=== PATIENT | female | born 1945 | race African-American/Black ===

== ENCOUNTER 2023-12-31 15:27 | Inpatient (IN) | payer OTHER, MEDICARE ==
[2023-12-31] MEDS: ACETAMINOPHEN 1000 MG/100 ML BAG IVPB ONE (16:37)
[2023-12-31] MEDS: SODIUM CHLORIDE 0.9% 500 ML INFUS.BAG IV ONE ×2 (16:37→18:57)
[2023-12-31 16:40] LABS: VENOUS BASE EXCESS 3.4 mmol/L (-2-2); VENOUS O2 SATURATION 30.4 % (70-80); VENOUS PCO2 45.5 mmHg (38-52); VENOUS PH 7.417 (7.310-7.410)
[2023-12-31 16:57] LABS: HEMATOCRIT 43.7 % (32.4-45.2); HEMOGLOBIN 14.3 GM/dL (10.7-15.3); MCH 26.9 pg (25.7-33.7); MCHC 32.7 g/dl (32.0-36.0); MEAN CELL VOLUME 82.4 fl (80-96); MEAN PLT VOLUME 9.3 fl (7.5-11.1); PLATELET COUNT 275 10^3/uL (134-434); RDW 14.5 % (11.6-15.6); WHITE BLOOD COUNT 23.1 K/mm3 (4.0-10.0)
[2023-12-31 16:59] LABS: INR 1.17 (0.83-1.09); PROTHROMBIN TIME (PATIENT) 13.2 SEC (9.7-13.0)
[2023-12-31 17:02] LABS: ACTIVATED PTT 31.5 SECONDS (25.2-36.5)
[2023-12-31 17:10] LABS: POTASSIUM 3.3 mmol/L (3.5-5.1)
[2023-12-31 17:11] LABS: CALCIUM 9.1 mg/dL (8.5-10.1)
[2023-12-31 17:12] LABS: ALBUMIN 2.9 g/dl (3.4-5.0); BLOOD UREA NITROGEN 45.6 mg/dL (7-18)
[2023-12-31 17:15] LABS: CREATININE 2.1 mg/dL (0.55-1.3)
[2023-12-31 17:17] LABS: BILIRUBIN,TOTAL 1.3 mg/dL (0.2-1); TOT PROT 7.8 g/dl (6.4-8.2)
[2023-12-31] MEDS: AZITHROMYCIN IVPB 500 MG in DEXTROSE 5%-WATER - 250 ML IVPB ONE (17:57)
[2023-12-31] MEDS: CEFTRIAXONE 1,000 MG in DEXTROSE 5%-WATER - 50 ML IVPB ONE (17:57)
[2023-12-31] MEDS: VANCOMYCIN/WATER 1250 MG 1,250 MG/250 ML BAG IVPB ONE (17:58)
[2023-12-31] MEDS: PIPERACILLIN/TAZOB 4.5 GM 4.5 GM in DEXTROSE 5%-WATER 100 ML IVPB ONE (17:58)
[2023-12-31] MEDS ORDERED: CEFTRIAXONE 1 GM/50 ML BAG ONE (17:59)
[2023-12-31] MEDS ORDERED: AZITHROMYCIN IVPB 500 MG/250 ML BAG IVPB ONE (18:00)
[2023-12-31] MEDS ORDERED: POTASSIUM CHLORIDE ORAL LIQUID 20 MEQ/15 ML ONE (18:07)
[2023-12-31] MEDS: POTASSIUM CHLORIDE ORAL LIQUID 20 MEQ/15 ML PO ONE (18:09)
[2023-12-31 18:26] LABS: EPI CELLS 31 /uL (0-25.1); HYALINE CASTS 14 /uL (0-3.1); PH,URINE 5.5 (5.0-8.0); URINE APPEARANCE CLOUDY; URINE BILIRUBIN 2+ (NEGATIVE); URINE COLOR DK YELLOW; URINE GLUCOSE (UA) TRACE (NEGATIVE); URINE KETONE TRACE (NEGATIVE); URINE LEUK ESTERASE TRACE (NEGATIVE); URINE NITRITE NEGATIVE (NEGATIVE); URINE PROTEIN 3+ (NEGATIVE); URINE WBC 57 /uL (0-25.8)
[2023-12-31] MEDS: DEXAMETHASONE SOD PHOSPHATE 10 MG/1 ML VIAL IVPUSH ONE (18:26)
[2023-12-31] MEDS ORDERED: DEXAMETHASONE SOD PHOSPHATE 4 MG/1 ML VIAL ONE (18:26)
[2023-12-31 18:40] LABS: ANISOCYTOSIS 1+; MACROCYTOSIS 0; ROULEAU 2+
[2023-12-31 19:24] LABS: URINE BACTERIA 2.8 /uL (0-1359); URINE RBC 32.9 /uL (0-23.9)
[2023-12-31 19:24] LABS: LACTIC ACID 2.5 mmol/L (0.4-2.0)
[2023-12-31] MEDS: REMDESIVIR 200 MG in SODIUM CHLORIDE 250 ML IVPB ONE (19:27)
[2023-12-31] MEDS ORDERED: ALBUTEROL SO4 HFA INHALER IH PRN (22:36)
[2024-01-01 00:37] VITALS: BMI 27.3
[2024-01-01 03:21] LABS: LACTIC ACID 2.2 mmol/L (0.4-2.0)
[2024-01-01] MEDS: ACETAMINOPHEN 1000 MG/100 ML BAG IVPB PRN (06:12)
[2024-01-01] MEDS: HEPARIN NA (PORCINE) 5,000 UNITS/ML 1ML VIAL SQ SCH (06:13)
[2024-01-01 07:38] LABS: HEMATOCRIT 38.9 % (32.4-45.2); HEMOGLOBIN 12.9 GM/dL (10.7-15.3); MCH 26.8 pg (25.7-33.7); MCHC 33.1 g/dl (32.0-36.0); PLATELET COUNT 247 10^3/uL (134-434); RBC 4.81 M/mm3 (3.60-5.2); RDW 14.9 % (11.6-15.6); WHITE BLOOD COUNT 15.9 K/mm3 (4.0-10.0)
[2024-01-01 07:53] LABS: POTASSIUM 3.3 mmol/L (3.5-5.1)
[2024-01-01 07:59] LABS: BLOOD UREA NITROGEN 46.2 mg/dL (7-18); CALCIUM 7.9 mg/dL (8.5-10.1); MAGNESIUM 2.8 mg/dL (1.8-2.4)
[2024-01-01 08:02] LABS: ALBUMIN 2.1 g/dl (3.4-5.0); CREATININE 1.5 mg/dL (0.55-1.3); PHOSPHOROUS 1.6 mg/dL (2.5-4.9)
[2024-01-01 08:05] LABS: BILIRUBIN,DIRECT 0.5 mg/dL (0.0-0.2)
[2024-01-01 08:07] LABS: BILIRUBIN,TOTAL 0.8 mg/dL (0.2-1)
[2024-01-01 08:29] LABS: LACTIC ACID 2.3 mmol/L (0.4-2.0)
[2024-01-01] MEDS: ACETAMINOPHEN 650 MG SUPP.RECT RC ONE (09:38)
[2024-01-01] MEDS ORDERED: AZITHROMYCIN IVPB 250 MG in DEXTROSE 5%-WATER - 250 ML IVPB SCH (10:00)
[2024-01-01] MEDS: REMDESIVIR 100 MG in SODIUM CHLORIDE 250 ML IVPB SCH (10:17)
[2024-01-01] MEDS: AZITHROMYCIN IVPB 500 MG/250 ML BAG IVPB SCH (10:17)
[2024-01-01 10:45] LABS: LACTIC ACID 3.6 mmol/L (0.4-2.0)
[2024-01-01] MEDS: CEFTRIAXONE 1 G/50 ML PREMIX 50 ML IVPB SCH (11:16)
[2024-01-01] MEDS: LACTATED RINGERS SOLUTION 1,000 ML/1,000 ML INFUS.BAG IV SCH (11:23)
[2024-01-01] MEDS: POTASSIUM CHLORIDE ORAL LIQUID 20 MEQ/15 ML PO ONE (11:59)
[2024-01-01] MEDS: NAPH,MB-DB/K PH,MBDB POWDER PACKET PO ONE (12:00)
[2024-01-01 12:38] LABS: HIV INTERPRETATION NEGATIVE (NEGATIVE)
[2024-01-01] MEDS: methylPREDNISolone NA SUCC 40 MG/1 ML VIAL IVPUSH SCH (13:42)
[2024-01-02 08:48] LABS: HEMATOCRIT 39.3 % (32.4-45.2); HEMOGLOBIN 12.5 GM/dL (10.7-15.3); MCH 26.3 pg (25.7-33.7); MCHC 31.8 g/dl (32.0-36.0); MEAN CELL VOLUME 82.9 fl (80-96); MEAN PLT VOLUME 9.7 fl (7.5-11.1); PLATELET COUNT 259 10^3/uL (134-434); RBC 4.75 M/mm3 (3.60-5.2); RDW 15.1 % (11.6-15.6); WHITE BLOOD COUNT 11.7 K/mm3 (4.0-10.0)
[2024-01-02 09:07] LABS: POTASSIUM 3.8 mmol/L (3.5-5.1)
[2024-01-02 09:11] LABS: ALBUMIN 2.1 g/dl (3.4-5.0); BLOOD UREA NITROGEN 42.6 mg/dL (7-18); CALCIUM 8.3 mg/dL (8.5-10.1)
[2024-01-02 09:12] LABS: MAGNESIUM 3.1 mg/dL (1.8-2.4)
[2024-01-02 09:14] LABS: CREATININE 1.3 mg/dL (0.55-1.3)
[2024-01-02 09:16] LABS: BILIRUBIN,TOTAL 0.8 mg/dL (0.2-1); TOT PROT 6.1 g/dl (6.4-8.2)
[2024-01-02] MEDS: NAPH,MB-DB/K PH,MBDB POWDER PACKET PO ONE (14:29)
[2024-01-02] MEDS: LACTATED RINGERS SOLUTION 1,000 ML/1,000 ML INFUS.BAG IV SCH (21:34)
[2024-01-03 07:48] LABS: HEMATOCRIT 36.9 % (32.4-45.2); HEMOGLOBIN 12.1 GM/dL (10.7-15.3); MCH 26.9 pg (25.7-33.7); MCHC 32.9 g/dl (32.0-36.0); MEAN CELL VOLUME 81.7 fl (80-96); MEAN PLT VOLUME 9.8 fl (7.5-11.1); PLATELET COUNT 235 10^3/uL (134-434); RBC 4.52 M/mm3 (3.60-5.2); RDW 15.2 % (11.6-15.6); WHITE BLOOD COUNT 10.4 K/mm3 (4.0-10.0)
[2024-01-03 08:14] LABS: POTASSIUM 4.2 mmol/L (3.5-5.1)
[2024-01-03 08:24] LABS: ALBUMIN 1.8 g/dl (3.4-5.0); BLOOD UREA NITROGEN 31.4 mg/dL (7-18); CALCIUM 8.3 mg/dL (8.5-10.1); CREATININE 0.9 mg/dL (0.55-1.3)
[2024-01-03 08:26] LABS: TOT PROT 5.1 g/dl (6.4-8.2)
[2024-01-03 08:33] LABS: BILIRUBIN,TOTAL 0.6 mg/dL (0.2-1)
[2024-01-03 10:18] LABS: PHOSPHOROUS 2.9 mg/dL (2.5-4.9)
[2024-01-04 08:58] LABS: HEMATOCRIT 37.8 % (32.4-45.2); HEMOGLOBIN 12.3 GM/dL (10.7-15.3); MCH 26.7 pg (25.7-33.7); MCHC 32.5 g/dl (32.0-36.0); MEAN CELL VOLUME 82.2 fl (80-96); MEAN PLT VOLUME 9.9 fl (7.5-11.1); PLATELET COUNT 299 10^3/uL (134-434); WHITE BLOOD COUNT 14.1 K/mm3 (4.0-10.0)
[2024-01-04 09:25] LABS: POTASSIUM 4.1 mmol/L (3.5-5.1)
[2024-01-04 09:27] LABS: CALCIUM 8.3 mg/dL (8.5-10.1)
[2024-01-04 09:32] LABS: BILIRUBIN,TOTAL 0.7 mg/dL (0.2-1)
[2024-01-04 09:33] LABS: TOT PROT 5.7 g/dl (6.4-8.2)
[2024-01-04] MEDS ORDERED: guaiFENesin 200 MG/10 ML 10 ML UNIT-DOSE CUPS PO PRN (17:29)
[2024-01-04 23:35] VITALS: TEMP 97.9
[2024-01-05] MEDS: predniSONE 20 MG TABLET (UD) PO SCH (10:33)
[2024-01-05 14:54] VITALS: BP 116/74; PULSE 70; RESP 17
== END 2024-01-05 17:07 | disposition home or self-care (01) | DRG 871 ==
LOC: JER 15:27 → JERBED 19:33 → J4S 23:58
PROVIDERS: ADMIT Internal Medicine; ATTEND Internal Medicine
PROC: XW033E5 Introduction of Remdesivir Anti-infective into Peripheral Vein, Percutaneous Approach, New Technology Group 5 (ICD-10-PCS; principal; 2023-12-31)
DX: A41.9 Sepsis, unspecified organism (principal); G93.41 Metabolic encephalopathy; J18.9 Pneumonia, unspecified organism; U07.1 COVID-19; M62.82 Rhabdomyolysis; N17.9 Acute kidney failure, unspecified; E78.5 Hyperlipidemia, unspecified; I10 Essential (primary) hypertension; E83.39 Other disorders of phosphorus metabolism
CPT/HCPCS: 0241U-QW; 36415; 70450-TC; 71045-TC-FY; 71250-TC; 72125-TC; 72170-TC-FY; 76700-TC; 80048; 80053; 80076; 81003; 82436; 82550; 82553; 82570; 82803; 82962; 83605; 83735; 83935; 84100; 84300; 84484; 85025; 85027; 85610; 85730; 86140; 86704; 86708; 86803; 86850; 86900; 86901; 87040; 87070; 87086; 87186; 87205; 87340; 87389; 87517; 87899; 93005; 93010; 93306-TC; 97116-GP; 97162-GP; 99285-25; J0131; J0248; J1100; J1644